=== PATIENT | male | born 1980 | race Caucasian/White ===

== ENCOUNTER 2021-07-20 13:00 | Emergency (ER) | payer BC ==
[~2021-07-20] VITALS: Ht 185.4 cm; Wt 127.0 kg
[2021-07-20 13:17] VITALS: BP_SYST 153
--- NOTE | 2021-07-20 13:25 | NUR ---
Received patient in bed #1, AAOX4, NAD, VSS, pain 07/28, with CC of Left Knee pain s/p mechanical fall. Denies KO, awaiting MD for further assessement.
[2021-07-20] MEDS ORDERED: HYDROcodone/ACETAMIN 5-325 MG TAB (NORCO/ VICODIN) PO ONE (13:45)
[2021-07-20] MEDS ORDERED: KETOROLAC TROMETHAMINE 60 MG/2 ML VIAL IM ONE ×2 (15:45→16:01)
[2021-07-20] MEDS ORDERED: NAPR-690 PO (16:01)
[2021-07-20 16:02] VITALS: BP_SYST 150
== END 2021-07-20 16:03 | disposition home or self-care (01) ==
LOC: SED 13:00
DX: S82.832A Other fracture of upper and lower end of left fibula, initial encounter for closed fracture (principal); W18.39XA Other fall on same level, initial encounter; Y93.89 Activity, other specified; Y92.89 Other specified places as the place of occurrence of the external cause; Y99.8 Other external cause status
CPT/HCPCS: 29505; 73564; 96372; 99283; J1885

== ENCOUNTER 2021-09-20 03:21 | Emergency (ER) | payer BC ==
[~2021-09-20] VITALS: Ht 185.4 cm; Wt 127.0 kg
[~2021-09-20 03:21] MED LIST: NAPR-690 PO
--- NOTE | 2021-09-20 03:28 | NUR ---
Patient to ER bed 4 to gown for evaluation. Side rails up. Report given to MARTIN BROOKS.
[2021-09-20 03:34] VITALS: BP_SYST 157
--- NOTE | 2021-09-20 03:43 | NUR ---
PT ARRIVED TO ER WOTH COMPLAINTS OF ABDOMINAL PAIN SINCE ABOUT 1800 YESTERDAY. A&OX4. 07/28 PAIN TO MIDDLE OF ABDOMEN. PT STATES THIS HAPPENS A WHILE AGO WELL AND HAD GASTRITIS. PT STATES HE HAS BEEN EATING " DIRTY FOR A FEW WEEKS"
--- NOTE | 2021-09-20 03:55 | NUR ---
# 20 gauge angiocath placed to LAC. Use of asceptic technique. Opsite placed over site. Blood return noted. Blood for lab drawn from site. Flushed with 10 cc of normal saline. No evidence of infiltration noted. Patient tolerated well.
[2021-09-20] MEDS: NACL 0.9% 1,000 ML IV ONE (03:58)
--- NOTE | 2021-09-20 04:13 | NUR ---
ER at bedside examining patient.
[2021-09-20] MEDS: PROCHLORPERAZINE EDISYLATE 10 MG/2 ML VIAL IVP ONE (04:16)
[2021-09-20] MEDS: LORazepam 2 MG/ML VIAL IVP ONE (04:16)
[2021-09-20] MEDS: MORPHINE 4 MG INJ. 4 MG/ML VIAL IVP ONE (04:28)
[2021-09-20 04:41] LABS: BASOPHILS # (AUTO) 0.1 K/uL (0.0-0.2); EOSINOPHILS % (AUTO) 0.4 % (0.0-4.0); HEMATOCRIT 50.3 % (36-54); HEMOGLOBIN 17.5 g/dL (14.0-18.0); LYMPHOCYTES # (AUTO) 2.1 K/uL (1.0-5.5); LYMPHOCYTES % (AUTO) 22.4 % (20.5-51.5); MEAN CORPUSCULAR HEMOGLOBIN 30 pg (27-31); MEAN CORPUSCULAR HGB CONC 35 % (32-36); MEAN CORPUSCULAR VOLUME 88 fL (79.0-98.0); MONOCYTES # (AUTO) 0.6 K/uL (0.0-1.0); MONOCYTES % (AUTO) 6.4 % (1.7-9.3); NEUTROPHILS # (AUTO) 6.5 K/uL (1.8-7.7); NEUTROPHILS % (AUTO) 69.8 % (40.0-70.0); PLATELET COUNT (AUTO) 166 K/uL (130-430); RED BLOOD CELL COUNT(AUTO) 5.75 MIL/uL (4.2-6.2); WHITE BLOOD COUNT (AUTO) 9.3 K/uL (4.8-10.8)
--- NOTE | 2021-09-20 04:45 | NUR ---
Patient transported to radiology via GURNEY, accompanied by VAIBHAV.
[2021-09-20 04:53] LABS: CALCIUM 8.7 mg/dL (8.4-11.0); CREATININE 0.92 mg/dL (0.55-1.30); POTASSIUM 3.6 mmol/L (3.5-5.1)
[2021-09-20 04:58] LABS: ALBUMIN 3.8 g/dL (3.4-4.8); TOTAL BILIRUBIN 0.9 mg/dL (0.0-1.0)
[2021-09-20] MEDS ORDERED: PANTOPRAZOLE SODIUM 40 MG/VIAL (PROTONIX) ONE (05:43)
[2021-09-20] MEDS: PANTOPRAZOLE SODIUM 40 MG/VIAL (PROTONIX) IVP ONE (05:47)
--- NOTE | 2021-09-20 05:50 | NUR ---
PT SIGNED CT CONSENT FORM
[2021-09-20 05:53] LABS: BILIRUBIN,URINE NEGATIVE (NEGATIVE); BLOOD, URINE NEGATIVE (NEGATIVE); CLARITY/URINE CLEAR (CLEAR); COLOR,URINE YELLOW (YELLOW); GLUCOSE,URINE NEGATIVE (NEGATIVE); KETONES,URINE 2+ (NEGATIVE); LEUKOCYTE ESTERASE ,URINE NEGATIVE (NEGATIVE); NITRITE, URINE NEGATIVE (NEGATIVE); PROTEIN URINE TRACE (NEGATIVE)
[2021-09-20 06:13] LABS: BARBITURATE, URINE NEGATIVE (NEG <=200); BENZODIAZEPINE, URINE POSITIVE (NEG <=150); CANNABINOID, URINE POSITIVE (NEG <=50); COCAINE, URINE NEGATIVE (NEG <=150); METHAMPHETAMINES SCREEN,URINE NEGATIVE (NEG <=500); OPIATE, URINE POSITIVE (NEG <=100); PHENCYCLIDINE SCREEN,URINE NEGATIVE (NEG <=25); UR TRICYCLIC ANTIDEPRESSANTS NEGATIVE (NEG <=300); URINE AMPHETAMINE NEGATIVE (NEG <=500); URINE METHADONE NEGATIVE (NEG <=200); URINE OXYCODONE SCREEN NEGATIVE (NEG <=100); URINE PROPOXYPHENE SCREEN NEGATIVE (NEG <=300)
--- NOTE | 2021-09-20 06:20 | NUR ---
Patient transported to radiology via GURNEY, accompanied by VAIBHAV.
[2021-09-20] MEDS ORDERED: PROC5TAB12 PO (06:41)
[2021-09-20] MEDS ORDERED: PRO40 PO (06:41)
[2021-09-20] MEDS ORDERED: HYDR-3917 PO (06:41)
--- NOTE | 2021-09-20 07:15 | NUR ---
Assumed care of patient. Per report received and Dr Chaudhry, patient to be discharged. Will continue to monitor.
--- NOTE | 2021-09-20 08:47 | NUR ---
Patient given written and verbal discharge instructions and verbalizes understanding. ER MD discussed with patient the results and treatment provided. Patient in stable condition. ID arm band removed. IV catheter removed intact and dressing applied, no active bleeding. Rx of [place], Compazine and Protonix given. Patient educated on pain management and to follow up with PMD. Pain improved. Opportunity for questions provided and answered. Medication side effect fact sheet provided.
[2021-09-20 08:49] VITALS: BP_SYST 133
== END 2021-09-20 08:47 | disposition home or self-care (01) ==
LOC: SED 03:21
DX: K29.70 Gastritis, unspecified, without bleeding (principal); R11.15 Cyclical vomiting syndrome unrelated to migraine; Z79.899 Other long term (current) drug therapy
CPT/HCPCS: 36415; 74021; 74177; 76376; 80053; 80307; 81003; 83690; 85025; 96361; 96374; 96375; 99285; C9113; J0780; J2060; J2270; J7030; Q9967